=== PATIENT | male | born 1975 | race Caucasian/White ===

== ENCOUNTER 2022-01-30 17:05 | Emergency (ER) | payer OTHER ==
[~2022-01-30] VITALS: Ht 182.9 cm; Wt 99.8 kg
[2022-01-30] MEDS ORDERED: WELCHOL625 MG PO (17:54)
[2022-01-30] MEDS ORDERED: ONDANSETRON ODT8 MG PO (22:20)
== END 2022-01-30 23:19 | disposition home or self-care (01) ==
LOC: ED 17:05
DX: K52.9 Noninfective gastroenteritis and colitis, unspecified (principal); R51.9 Headache, unspecified; Z20.822 Contact with and (suspected) exposure to COVID-19; Z79.899 Other long term (current) drug therapy
CPT/HCPCS: 36415; 70450; 80048; 81001; 85025; 87502; 96361; 96374; 96375; 99284-25; C9803; J1885; J2405; J2550; J7030; U0003